=== PATIENT | female | born 1960 | race Caucasian/White ===

== ENCOUNTER 2023-11-10 17:45 | Inpatient (IN) ==
--- NOTE | 2023-11-10 18:05 | Emergency Department Note ---
Impression & Plan Pyelonephritis, Elevated troponin I level ED Provider Note NAME: DARYL FLORES AGE: 63 SEX: F : 1960 ARRIVES VIA: Ambulance INFORMANT: Patient, ED PROVIDER(S): Oleg Rdz DO CHIEF COMPLAINT: Fever HPI: The patient is a 63-year-old female who presented to the emergency department for a fever. The patient states that she started having symptoms yesterday. She is currently being treated for dental infection. She is on amoxicillin. Patient took ibuprofen prior to arrival. She has had a slight cough and she has had a exposure to COVID-19. The patient denies having any dysuria or frequency. She denies having any back pain. She did note some nausea. She denies having any redness or swelling of the legs ROS: See above HPI for pertinent positives & negatives. A total of 10 systems reviewed and were otherwise negative. PAST MEDICAL HISTORY: See Below PAST SURGICAL HISTORY: See Below FAMILY HISTORY: See Below SOCIAL HISTORY: See Below HOME MEDICATIONS: See Below ALLERGIES: See Below VITALS: See Below PHYSICAL EXAMINATION: GENERAL: Patient is awake alert in no acute distress patient is resting comfortably and showing no signs of anxiety EYES: The conjunctivae are clear. The pupils are round and reactive. EARS, NOSE, MOUTH AND THROAT: The nose is without any evidence of any deformity. There was small swelling on the left upper gumline. There is no trismus or facial swelling. NECK: The neck is nontender and supple. RESPIRATORY: Normal respiratory effort is noted there is no evidence of wheezing rhonchi or rales CARDIOVASCULAR: Regular rate and rhythm noted there no murmurs rubs or gallops normal S1 normal S2. GASTROINTESTINAL: The abdomen is soft. Abdomen is nontender. MUSCULOSKELETAL/EXTREMITIES: There is no evidence of gross deformity full range of motion is noted in the hips and shoulders. SKIN: There is no obvious evidence of any rash. There are no petechiae, pallor or cyanosis noted. NEUROLOGIC: Patient is awake alert and oriented x3 MEDICAL DECISION MAKING: The patient is a 63-year-old female who presented to the emergency department for an evaluation of fever and not feeling well. She did have nausea. Physical exam was not consistent with an acute surgical abdomen. The patient initially had reassuring vital signs but her blood pressure started to drop. She was treated with IV fluids in the emergency department. She was also treated with IV antibiotics for presumed urinary tract infection noted on urinalysis. I discussed patient's laboratory and radiographic studies with her. She was found to have an elevated white blood cell count as well as an elevation of procalcitonin. Given her vital signs as well as her lack of primary care follow-up I do feel the patient would be a better candidate for inpatient management at this time. For this reason I discussed her condition with the on- call [facility] hospitalist. Triage Nursing notes reviewed. Prior medical records reviewed Vital Signs: reviewed and remarkable for intermittent hypotension. Differential diagnosis: Viral syndrome, otitis, pharyngitis, pneumonia, influenza, meningitis, urinary tract infection, sepsis, bacteremia, as well as other pathologies. ER treatment provided: See below Diagnostics interpreted by me: ECG: EKG was obtained in the emergency department. My interpretation is normal sinus rhythm at 96 bpm. There is no ectopy. There is no acute ST segment abnormalities noted. No previous tracing was available. Cardiac Monitoring: An order was placed for continuous cardiac monitoring. The monitor shows a rate of 95 bpm with sinus rhythm. Laboratory studies: As stated above and show below. Imaging studies: See below. Radiographic imaging was reviewed by myself Consultation(s): I discussed this case with Dr. Ceja who is on-call for the [facility]. Past Med/Surg History Problem List (Updated 11/10/23 @ 20:01 by Oleg Rdz DO) Elevated troponin I level (Acute) Pyelonephritis (Acute) UTI (urinary tract infection) Social History Smoking Status: Never smoker Preferred Language: Fijian Feels Safe at Home: Yes Results & Data (ED) Vital Signs Vital Signs - 24 hr 11/10/23 17:33 11/10/23 18:03 11/10/23 19:57 Temperature 36.7 C Temperature Source Oral Pulse Rate 97 H 95 H Respiratory Rate 18 18 Respiratory Depth Normal Blood Pressure 103/59 L Blood Pressure [Left Arm] 106/64 Blood Pressure Mean 73 Blood Pressure Mean [Left Arm] 78 Pulse Oximetry 94 94 Oxygen Delivery Method Room Air Sepsis Recent Fever Within 48 Hours Yes Sepsis New/Unexplained Change in Mental Status No Sepsis Action Taken by Nursing No Action Required Home Medications Current Medication List: was personally reviewed by me Laboratory Data Attestation: I reviewed the patient's lab results. 11/10/23 18:09 11/10/23 18:09 Lab Results 11/10/23 11/10/23 11/10/23 Range/Units 18:07 18:09 Unknown WBC 13.44 H (4.8-10.8) K/ul RBC 3.79 L (4.20-5.40) M/uL Hgb 11.5 L (12.0-16.0) g/dl Hct 34.1 L (37.0-47.0) % MCV 90.0 (80.0-100.0) fL MCH 30.3 (25.0-34.0) pg MCHC 33.7 (32.0-36.0) g/dL RDW Std Deviation 42.6 (36.4-46.3) fL RDW Coeff of July 12.9 (11.5-14.5) % Plt Count 273 (130-400) K/uL MPV 9.2 L (9.4-12.4) fL Immature Gran % (Auto) 0.6 % Neut % (Auto) 87.3 % Lymph % (Auto) 4.7 % [place] % (Auto) 7.2 % Eos % (Auto) 0.0 % Baso % (Auto) 0.2 % Neut # (Auto) 11.73 H (1.40-6.50) K/uL Lymph # (Auto) 0.63 L (1.20-3.40) K/uL [place] # (Auto) 0.97 H (0.11-0.59) K/uL Eos # (Auto) 0.00 (0.00-0.50) K/uL Baso # (Auto) 0.03 (0.00-0.20) K/uL Immature Gran # (Auto) 0.08 (0.01-0.20) K/uL Sodium 136 (136-145) mmol/L Potassium 3.2 L (3.5-5.1) mmol/L Chloride 105 (98-107) mmol/L Carbon Dioxide 21 (21-32) mmol/L Anion Gap 10 (3-11) BUN 11 (6-23) mg/dl Creatinine 0.80 (0.6-1.2) mg/dl Est Cr Clr Drug Dosing 61.1 ml/min Est GFR ( Amer) 92.2 ml/min Est GFR (Non-Af Amer) 79.6 ml/min BUN/Creatinine Ratio 13.8 (10-20) Glucose 117 H (70-99(Fasting)) mg/dl Calcium 8.7 (8.6-10.3) mg/dl Total Bilirubin 0.9 (0.2-1.0) mg/dl AST 26 (13-39) U/L ALT 15 (7-52) U/L Alkaline Phosphatase 86 (34-104) U/L Troponin I High Sens 15.6 H (0-14) pg/ml Total Protein 6.5 (6.0-8.3) gm/dl Albumin 3.7 (3.4-5.0) gm/dl Globulin 2.8 (2.5-4.0) gm/dl Albumin/Globulin Ratio 1.3 (0.9-2) Lipase 13 (11-82) U/L Procalcitonin 5.03 H (0-0.5) ng/ml Urine Color Yellow Urine Appearance Cloudy A (Clear) Urine pH 6.0 (4.5-7.5) Ur Specific [place] 1.013 (1.000-1.030) Urine Protein 1+ H (Negative) Urine Glucose (UA) Negative (Negative) Urine Ketones 1+ H (Negative) Urine Blood 3+ H (Negative) Urine Nitrite Positive A (Negative) Urine Bilirubin Negative (Negative) Urine Urobilinogen Negative (Negative) Ur Leukocyte Esterase 3+ H (Negative) Urine WBC (Auto) >50 H (0-5) /hpf Urine RBC (Auto) >20 H (0-2) /hpf U Hyaline Cast (Auto) 0-2 (0-2) /lpf U Epithel Cells (Auto) 0-2 (0-2) /hpf Urine Bacteria (Auto) 4+ H (None Seen) SARS-CoV-2 (PCR) NEGATIVE (Negative) Influenza Type A (PCR) Negative (Neg) Influenza Type B (PCR) Negative (Neg) RSV (RT-PCR) Negative (Neg) Administered Medications Discontinued Medications Sodium Chloride (Nss) 1,000 mls @ 999 mls/hr IV .Q1H1M STA Stop: 11/10/23 19:00 Last Infusion: 11/10/23 19:50 Dose: Infused Documented By: Admin: 11/10/23 18:14 Dose: 999 mls/hr Documented By: PABLO Sodium Chloride (Nss) 1,000 mls @ 999 mls/hr IV .Q1H1M ONE Stop: 11/10/23 20:10 Last Admin: 11/10/23 19:16 Dose: 999 mls/hr Documented By: JANAK Ondansetron HCl (Ondansetron Inj 2 Mg/Ml 2 Ml Vial) 4 mg IV NOW STA Stop: 11/10/23 18:01 Last Admin: 11/10/23 18:14 Dose: 4 mg Documented By: PABLO Imaging Data Attestation: I personally reviewed and interpreted this imaging study as follows: My Impression: 1 view chest x-ray was obtained in the emergency department. My interpretation is no free air or definite infiltrate, final report below. Radiologist's Impression: Chest X-Ray 11/10/23 18:00 SINGLE VIEW CHEST CLINICAL HISTORY: Fever. FINDINGS: An AP, portable, upright chest radiograph is obtained. No prior studies are available for comparison at the time of dictation. The cardiomediastinal silhouette is unremarkable. Airspace opacities are seen at the left lung base. No large pleural effusion or pneumothorax is seen. The skeletal structures are osteopenic. The bony thorax is grossly intact. There is thoracolumbar scoliosis with a spinal lona in place. The lona appears fractured. IMPRESSION: 1. There are left basilar opacities. This could represent atelectasis versus a mild pneumonitis. Clinical correlation will be required and radiographic follow- up to resolution is recommended. 2. A spinal lona is in place and appears fractured. ACT 112: Negative or not required by law. Electronically signed by: Emiliano Herndon M.D. 11/10/2023 8:06 PM Discharge Plan Visit Data Chief Complaint: Illness Stated Complaint: ILLNESS ED Provider: Oleg Rdz Discharge Problem: Pyelonephritis, Elevated troponin I level Patient Disposition: Being Evaluated by Hospitalist Forms Stand Alone Forms: My [facility] Referrals Referrals: PCP,NO [Physician] -
[2023-11-10] MEDS: ONDANSETRON INJ 2 MG/ML 2 ML VIAL IV STA (18:14)
[2023-11-10] MEDS: SODIUM CHLORIDE 0.9% 1,000 ML IV STA (18:14)
[2023-11-10 18:23] LABS: Basophils # (auto) 0.03 K/uL (0.00-0.20); Basophils % (auto) 0.2 %; Hematocrit (blood only) 34.1 % (37.0-47.0); Hemoglobin 11.5 g/dl (12.0-16.0); Immature Granulocytes # (auto) 0.08 K/uL (0.01-0.20); Immature Granulocytes % (auto) 0.6 %; Lymphocytes # (auto) 0.63 K/uL (1.20-3.40); Lymphocytes % (auto) 4.7 %; Mean Corpuscular Hemoglobin 30.3 pg (25.0-34.0); Mean Corpuscular Hgb Conc 33.7 g/dL (32.0-36.0); Mean Platelet Volume 9.2 fL (9.4-12.4); Monocytes # (auto) 0.97 K/uL (0.11-0.59); Monocytes % (auto) 7.2 %; Neutrophils # (auto) 11.73 K/uL (1.40-6.50); Neutrophils % (auto) 87.3 %; Platelet Count 273 K/uL (130-400); RDW Coefficient of Variation 12.9 % (11.5-14.5); RDW Standard Deviation 42.6 fL (36.4-46.3); Red Blood Count 3.79 M/uL (4.20-5.40); White Blood Count 13.44 K/ul (4.8-10.8)
[2023-11-10 18:42] LABS: Albumin Globulin Ratio 1.3 (0.9-2); Albumin Level 3.7 gm/dl (3.4-5.0); BUN Creatinine Ratio 13.8 (10-20); Bilirubin,Total 0.9 mg/dl (0.2-1.0); Calcium 8.7 mg/dl (8.6-10.3); Creatinine Clr Calc Pharmacy 61.1 ml/min; Est GFR (African American) 92.2 ml/min; Est GFR (Non-African American) 79.6 ml/min; Globulin 2.8 gm/dl (2.5-4.0); Potassium 3.2 mmol/L (3.5-5.1); Total Protein 6.5 gm/dl (6.0-8.3)
[2023-11-10 18:49] LABS: Troponin I High Sensitivity 15.6 pg/ml (0-14)
[2023-11-10 18:55] LABS: Influenza A virus by PCR Negative (Neg); Influenza B virus by PCR Negative (Neg); RSV by PCR Negative (Neg); SARS CoV2 RNA(COVID-19) Ceph NEGATIVE (Negative)
[2023-11-10 19:13] LABS: Appearance Urine Cloudy (Clear); Bacteria Urine Automated 4+ (None Seen); Bilirubin Urine Negative (Negative); Blood Urine 3+ (Negative); Cast Urine Automated 0-2 /lpf (0-2); Color Urine Yellow; Epithelial Cell Urine Auto 0-2 /hpf (0-2); Glucose Urine UA Negative (Negative); Ketones Urine 1+ (Negative); Leukocyte Esterase Urine 3+ (Negative); Nitrite Urine Positive (Negative); Protein Urine 1+ (Negative); RBC Urine Automated >20 /hpf (0-2); Specific Gravity Urine 1.013 (1.000-1.030); Urobilinogen Urine Negative (Negative); WBC Urine Automated >50 /hpf (0-5)
[2023-11-10] MEDS: SODIUM CHLORIDE 0.9% 1,000 ML IV ONE (19:16)
--- NOTE | 2023-11-10 19:41 | History & Physical Report ---
Date of Service November 10, 2023 Assessment & Plan (1) UTI (urinary tract infection): Plan: Fever, chills, and rigors that developed the evening of 11/08 Patient endorses dark/malodorous urine this week Leukocytosis at 13.44 with a neutrophil predominance CRP ordered, pending Zosyn 4.5 g IV q8h Acetaminophen as needed for fever/pain Follow Blood/UCx A.m. CBC, BMP, mag (2) Sepsis: Plan: Urinary source; tachycardia, and reported fever at home; mildly hypotensive in the ED Elevated procalcitonin at 5.03 Lactate ordered, pending IVF bolus of 2000mL NSS in the ED; 30mL/kg Continue gentle fluid rehydration with LR at 80mL/hr (3) Hyponatremia: Plan: Mild; K 3.2 on arrival Potassium chloride 20mEq p.o. Recheck am K Plan Disposition: Admit to Medr telemetry Full code Regular diet VTE PPx: Lovenox 40 mg SQ q24h History of Present Illness Chief Complaint: Illness, fever, rigors Primary Care Provider: NO PCP Iliana is a 63-year-old female with PMH of scoliosis (lona and back), depression, and headaches. She presented via EMS for fever, chills, and muscle aches that developed around 1300 on 11/08. Patient was recently traveling from [place], but started to feel bad on the right back. She currently lives in [place]. Patient did take her temperature last evening and it was around 102.7 F; fever broke shortly after taking ibuprofen, but she was still shaking uncontrollably that night. She does have a history of UTIs, and notes that her urine has been dark and malodorous the past few days. No recent change in diet. No sick contacts. No tick bites to her knowledge, but she reports she might have contact dermatitis on her back. She does have a history of scoliosis, and has hardware in her back. When asked about lower back pain, her friend at bedside reports that she has been complaining of LBP x 2 days; however, patient denies any change from her chronic/regular back pain. She has not been taking anything additional for the pain, but does use a heating pad and [place] as needed. Patient was recently started on amoxicillin by her dentist for an abscess in her right gum; she was prescribed this TID, but has been taking it BID. She denies PCN allergy. She also takes mirtazapine 30 mg at bedtime 2-3 times per week as needed for depression. She takes Fioricet as needed for headaches, and zolpidem ER 12.5 mg nightly for sleep. Patient denies smoking, tobacco use, and recent alcohol use. Patient is currently between jobs at, and does express some concerns regarding her health insurance (recommended patient call number on the back of her insurance card to verify; and agreed to discuss with case management). Patient is mildly hypotensive at 103/59 at time of admission; SpO2 94% on RA; vitals otherwise stable. ED course: NSS 1000 mL IV x 2 Zofran 4 mg IV Cefepime 2000 g IV ROS: Patient endorses fever, chills, night-sweats, dizziness/lightheadedness with movements, headache, dry cough, chest palpitations, nausea, dry heaves, dark malodorous urine, increased urinary frequency/urgency, and lower back pain. Patient denies changes in vision, chest pain, SOB, pleuritic CP, abdominal pain, vomiting, diarrhea, blood in urine/stool, burning with urination, or dysuria. Allergies Allergy/AdvReac Type Severity Reaction Status Date / Time thimerosal Allergy Intermediate EYE Verified 11/10/23 20:42 SWELLING, REDDENED, IRRITATED. monosodium glutamate AdvReac Severe SEVERE MATTSON, Verified 11/10/23 21:05 PROJECTILE VOMITING, SEVERE DIARRHEA MYCIN ANTIBIOTICS AdvReac Intermediate VOMITING, Uncoded 11/10/23 20:42 PASSED OUT, SHAKING Home Medications Medication Instructions Recorded Confirmed Type amoxicillin 500 mg tablet 500 mg PO TID 11/10/23 11/10/23 History bynhysdfqo-usulnsskohfde-cwatdzfa 1 tab PO DAILY PRN q6h 11/10/23 11/10/23 History 50 mg-325 mg-40 mg tablet mirtazapine 15 mg tablet 30 mg PO HS 11/10/23 11/10/23 History zolpidem 12.5 mg tablet,extended 12.5 mg PO HS 11/10/23 11/10/23 History release,multiphase Past Med/Surg History Problem List (Updated 11/10/23 @ 20:58 by Franklin Hartmann PA-C) Sepsis Hyponatremia Elevated troponin I level (Acute) Pyelonephritis (Acute) UTI (urinary tract infection) Social History Smoking Status: Never smoker Hx Alcohol Use: No Hx Substance Use: No Preferred Language: Mongolian Communication Ability: Effective Internet Researcher Required: No Beliefs That Will Affect Care: None Current Living Situation: Significant Other Current Living Situation Comment: lives with fialbertoe Other Information That Helps Us Care for You: No Feels Safe at Home: Yes Safety Concerns: Feels Safe At This Time Assistive Devices: Contacts, Glasses and Hospital Bed Review of Systems Review of Systems: See HPI above Physical Exam Physical Exam: General: no acute distress; non-toxic appearing; SpO2 94% on RA HEENT: normocephalic, atraumatic; no scleral icterus; PERRLA; dry mucus membrane; vision and hearing grossly intact Neck: supple; trachea midline Skin: warm, dry without signs of tenting; no cyanosis; no rashes, bruising, lesions, or erythema noted CV: chest wall NTP; RRR; S1/S2 normal; no murmurs/rubs/gallops; bounding pulses intact and symmetric at radial, DP, and PT Lungs: no acute respiratory distress; symmetrical chest wall expansion; clear breath sounds across all lung oliver w/o adventitious sounds; no wheezing ABD: Soft, NTP; BS present; no rebound/guarding; no distention Back: Scoliosis; negative CVA tenderness MSK: no tics or fasciculations; no edema noted in the LEs b/l, nonerythematous Neuro: A&Ox3; normal mood and affect; fluent speech; no focal deficits; sensation grossly intact in the LEs b/l Results & Data Results & Data Vital Signs (Past 12 Hours) Vital Signs Temp Pulse Resp BP Pulse Ox O2 Del Method 11/10/23 18:03 95 H 11/10/23 17:33 36.7 C 97 H 18 103/59 L 94 Room Air Laboratory Results Abnormal lab results 11/10/23 11/10/23 Range/Units 18:09 Unknown WBC 13.44 H (4.8-10.8) K/ul RBC 3.79 L (4.20-5.40) M/uL Hgb 11.5 L (12.0-16.0) g/dl Hct 34.1 L (37.0-47.0) % MPV 9.2 L (9.4-12.4) fL Neut # (Auto) 11.73 H (1.40-6.50) K/uL Lymph # (Auto) 0.63 L (1.20-3.40) K/uL [place] # (Auto) 0.97 H (0.11-0.59) K/uL Potassium 3.2 L (3.5-5.1) mmol/L Glucose 117 H (70-99(Fasting)) mg/dl Troponin I High Sens 15.6 H (0-14) pg/ml Procalcitonin 5.03 H (0-0.5) ng/ml Urine Appearance Cloudy A (Clear) Urine Protein 1+ H (Negative) Urine Ketones 1+ H (Negative) Urine Blood 3+ H (Negative) Urine Nitrite Positive A (Negative) Ur Leukocyte Esterase 3+ H (Negative) Urine WBC (Auto) >50 H (0-5) /hpf Urine RBC (Auto) >20 H (0-2) /hpf Urine Bacteria (Auto) 4+ H (None Seen) ECG Additional Comments: ECG ordered, pending Code Status & VTE Plan Code Status Full code VTE Prophylaxis Plan VTE Prophylaxis will be ordered: Yes Supervising Physician Co-Signing Physician Notes Patient seen and examined, chart reviewed, case discussed with NAYA hernández I agree with the assessment and plan as above. In brief, patient with sepsis, likely secondary to urinary source. She is afebrile with borderline BP initially. Has leukocytosis with WBC=13.44, elevated procalcitonin at 5.03 and UA suggestive of infection. On exam patient with generalized weakness - requires two person assist to the restroom Dysuria Dry MMM Abdomen soft, NT/ND, no CVA tenderness Ext - warm, well perfused Labs and images reviewed Assessment/Plan Patient initially admitted to medical. She had borderline low BPs in the ER which improved with manipulating her BP cuff. However, upon arrival to the floor her BP remainded low. She received 2.5L crystalloid thus far Lactate=2.1 --> 2.1 on one hour repeat Troponin did normalize on repeat -Patient transferred to PCU -Additional 500mL bolus of LR administered - total of 3L crystalloid bolus. She is on LR at 80mL/hr -Check random cortisol -Repeat lactate with AM labs to document clearance -CT of the abdomen obtained to assess for pyelonephritis, possible renal stone - awaiting formal read. Per my interpretation - patient with difficult positioning due to scoliosis, hardware in back causing some artifact. She does appear to have renal stones on right, possible PNA -Will check MRSA nares and add Vancomycin if needed -Continue Zosyn - will cover urinary pathogens as well as her dental abscess for which she was being treated prior to arrival -Remainder as above PG Care Time/CCT Total # of Minutes Spent Total Time Spent with Patient: Total time spent is greater than 50% in coordination of care (as documented) at patient's floor/unit and/or counseling patient: [place] [address] INT INP/OBS CARE 2/55MIN Patient Type New Medical Decision Making Moderate Complexity Diagnoses UTI (urinary tract infection) N39.0 Sepsis A41.9 Hyponatremia E87.1
--- NOTE | 2023-11-10 20:08 | XRay Report ---
SINGLE VIEW CHEST CLINICAL HISTORY: Fever. FINDINGS: An AP, portable, upright chest radiograph is obtained. No prior studies are available for c omparison at the time of dictation. The cardiomediastinal silhouette is unremarkable. Airspace opacit ies are seen at the left lung base. No large pleural effusion or pneumothorax is seen. The skeletal s tructures are osteopenic. The bony thorax is grossly intact. There is thoracolumbar scoliosis with a spinal lona in place. The lona appears fractured. IMPRESSION: 1. There are left basilar opacities. This could represent atelectasis versus a mild pneumonitis. Clin ical correlation will be required and radiographic follow-up to resolution is recommended. 2. A spinal lona is in place and appears fractured. ACT 112: Negative or not required by law. Electronically signed by: Emiliano Herndon M.D. 11/10/2023 8:06 PM
[2023-11-10] MEDS: POTASSIUM CHLORIDE CRTAB 20 MEQ TABCR PO STA (20:21)
[2023-11-10] MEDS: CEFEPIME 2,000 MG/20 ML VIAL IV STA (20:22)
[2023-11-10] MEDS: PIPERACILLIN/TAZOBACTAM 4.5 GM/100 ML BAG IV STA (21:29)
[2023-11-10] MEDS: LACTATED RINGER'S 500 ML IV ONE ×2 (22:22→23:23)
[2023-11-10] MEDS: LACTATED RINGER'S 1,000 ML IV SCH (22:58)
[2023-11-11] MEDS: [UNRECOGNIZED DRUG - REMARK] PO SCH (00:26)
[2023-11-11] MEDS: MIRTAZAPINE TAB 15 MG TAB PO SCH (00:27)
[2023-11-11] MEDS: ENOXAPARIN INJ 40 MG/0.4 ML SYR SQ SCH (00:29)
[2023-11-11] MEDS: ACETAMINOPHEN 325 MG TAB PO PRN (02:22)
--- NOTE | 2023-11-11 02:50 | CT Scan Report ---
Exam(s): CT ABDOMEN + PELVIS Without Contrast EXAM: CT Abdomen and Pelvis Without Intravenous Contrast CLINICAL HISTORY: Reason for exam: ?pyelonephritis ?renal stones. TECHNIQUE: Axial computed tomography images of the abdomen and pelvis without intravenous contrast. CTDI is 12.13 mGy and DLP is 510.13 mGy-cm. Automated exposure control was utilized for the study. A dose lowering technique was utilized adhering to the principles of ALARA. COMPARISON: No relevant prior studies available. FINDINGS: Lung bases: Dependent airspace consolidations. ABDOMEN: Liver: Unremarkable. Gallbladder and bile ducts: Unremarkable. No calcified stones. No ductal dilation. Pancreas: Unremarkable. No ductal dilation. Spleen: Unremarkable. No splenomegaly. Adrenals: Unremarkable. No mass. Kidneys and ureters: Bilateral nonobstructing renal stones, measuring up to 3 mm in the RIGHT kidney. No obstructive uropathy. Stomach and bowel: Mild wall thickening of small bowel, correlate for mild enteritis. No obstruction. PELVIS: Appendix: No findings to suggest acute appendicitis. Bladder: Unremarkable. No stones. Reproductive: Unremarkable as visualized. ABDOMEN and PELVIS: Intraperitoneal space: Unremarkable. No free air. No significant fluid collection. Bones/joints: Degenerative changes of the spine. No acute fracture. No dislocation. Soft tissues: Unremarkable. Vasculature: Atherosclerotic changes of the aorta. No abdominal aortic aneurysm. Lymph nodes: Unremarkable. No enlarged lymph nodes. Other findings: Right-sided [place] lona. IMPRESSION: 1. Dependent airspace consolidations. 2. Mild wall thickening of small bowel, correlate for mild enteritis. 3. Bilateral nonobstructing renal stones, measuring up to 3 mm in the RIGHT kidney. If there is concern for pallor nephritis, recommend repeat exam with intravenous contrast. Electronically signed by: Basilio Holm MD 11/11/23 02:49 AM
[2023-11-11 03:01] LABS: Magnesium 1.7 mg/dl (1.7-2.4)
[2023-11-11 03:07] LABS: C Reactive Protein 12.1 mg/dl (0-0.5)
[2023-11-11] MEDS: PIPERACILLIN/TAZOBACTAM 4.5 GM in DEXTROSE 5% MINI-B 100 ML IV SCH (03:30)
[2023-11-11] MEDS: BUTALBITAL/ACETAMIN/CAFFEINE TAB PO PRN (05:32)
[2023-11-11 05:54] LABS: Basophils # (auto) 0.03 K/uL (0.00-0.20); Basophils % (auto) 0.3 %; Eosinophils # (auto) 0.01 K/uL (0.00-0.50); Eosinophils % (auto) 0.1 %; Hematocrit (blood only) 31.9 % (37.0-47.0); Hemoglobin 10.4 g/dl (12.0-16.0); Immature Granulocytes # (auto) 0.05 K/uL (0.01-0.20); Immature Granulocytes % (auto) 0.5 %; Lymphocytes # (auto) 0.65 K/uL (1.20-3.40); Lymphocytes % (auto) 6.3 %; Mean Corpuscular Hemoglobin 30.1 pg (25.0-34.0); Mean Corpuscular Hgb Conc 32.6 g/dL (32.0-36.0); Mean Corpuscular Volume 92.5 fL (80.0-100.0); Mean Platelet Volume 9.3 fL (9.4-12.4); Monocytes # (auto) 0.41 K/uL (0.11-0.59); Neutrophils # (auto) 9.18 K/uL (1.40-6.50); Neutrophils % (auto) 88.8 %; Platelet Count 260 K/uL (130-400); RDW Coefficient of Variation 13.3 % (11.5-14.5); RDW Standard Deviation 45.2 fL (36.4-46.3); Red Blood Count 3.45 M/uL (4.20-5.40); White Blood Count 10.33 K/ul (4.8-10.8)
[2023-11-11 06:12] LABS: BUN Creatinine Ratio 9.5 (10-20); Calcium 8.3 mg/dl (8.6-10.3); Est GFR (African American) 101.3 ml/min; Est GFR (Non-African American) 87.4 ml/min; Magnesium 1.7 mg/dl (1.7-2.4); Potassium 3.3 mmol/L (3.5-5.1)
[2023-11-11] MEDS: POTASSIUM CHLORIDE CRTAB 20 MEQ TABCR PO SCH (08:48)
--- NOTE | 2023-11-11 10:58 | Electrocardiogram Report ---
Test Reason : Blood Pressure : / mmHG Vent. Rate : 096 BPM Atrial Rate : 096 BPM P-R Int : 146 ms QRS Dur : 090 ms QT Int : 370 ms P-R-T Axes : 038 035 057 degrees QTc Int : 467 ms Normal sinus rhythm Normal ECG No previous ECGs available Confirmed by Srinivas Jiang ([id number]) on 11/11/2023 10:58:30 AM Referred By: REFERRED SELF Confirmed By:Jose Luis Jiang
[2023-11-11 11:51] LABS: A calco-baum cmplx NotReported Not Detected (NotDetected); Bact fragilis Not Reported Not Detected (NotDetected); Blood Culture Id Panel See PCR Comment (NotDetected); C auris Not Reported Not Detected (NotDetected); CTX-M Resistant Gene DETECTED (NotDetected); Calbicans Not Reported Not Detected (NotDetected); Candida glabrata Not Reported Not Detected (NotDetected); Candida krusei Not Reported Not Detected (NotDetected); Cneoformans/gatti Not Reported Not Detected (NotDetected); Cparapsilosis Not Reported Not Detected (NotDetected); E cloacae compx Not Reported Not Detected (NotDetected); Efaecalis Not Reported Not Detected (NotDetected); Efaecium Not Reported Not Detected (NotDetected); Enterobacterales DETECTED (NotDetected); Enterobacterales Not Reported DETECTED (NotDetected); Escherichia coli Not Reported DETECTED (NotDetected); H influenzae Not Reported Not Detected (NotDetected); IMP Resistant Gene Not Detected (NotDetected); K aerogenes Not Reported Not Detected (NotDetected); KPC Resistant Gene Not Detected (NotDetected); Koxytoca Not Reported Not Detected (NotDetected); Kpneumoniae grp Not Reported Not Detected (NotDetected); Lmonocyt Not Reported Not Detected (NotDetected); N meningitidis Not Reported Not Detected (NotDetected); NDM Resistant Gene Not Detected (NotDetected); OXA 48 Like Resistant Gene Not Detected (NotDetected); P aeruginosa Not Reported Not Detected (NotDetected); Proteus spp Not Reported Not Detected (NotDetected); Salmonella spp Not Reported Not Detected (NotDetected); Smarcescens Not Reported Not Detected (NotDetected); Staph lugdunensis Not Reported Not Detected (NotDetected); Staph spp. Not Reported Not Detected (NotDetected); Staphaureus Not Reported Not Detected (NotDetected); Staphepi Not Reported Not Detected (NotDetected); Stenmaltophilia Not Reported Not Detected (NotDetected); Strep agal(GrpB) Not Reported Not Detected (NotDetected); Strep pneum Not Reported Not Detected (NotDetected); Strep pyog (GrpA) Not Reported Not Detected (NotDetected); Strep spp Not Reported Not Detected (NotDetected); VIM Resistant Gene Not Detected (NotDetected); mcr-1 Colistin Resistant Gene Not Detected (NotDetected)
[2023-11-11] MEDS: ONDANSETRON INJ 2 MG/ML 2 ML VIAL IV PRN (12:16)
[2023-11-11] MEDS: IBUPROFEN 600 MG TAB PO STA (12:26)
[2023-11-11] MEDS: IBUPROFEN 600 MG TAB PO ONE (12:27)
--- NOTE | 2023-11-11 14:15 | Hospitalist Progress Note ---
Date of Service November 11, 2023 Assessment & Plan (1) UTI (urinary tract infection): Plan: Patient endorses dark/malodorous urine this week along with fevers, chills, rigors that developed evening of 11/09/2023. Reviewed labs today 11/11/2023 that did reveal improved white count of 10.33 and improved neutrophils of 9.18. Worsened CRP 17.13 and Procalcitonin 10.60. BUN 7, creatinine 0.74 (WNL) Reviewed CTAP without contrast from 11/09/2022 that did reveal bilateral nonobstructing renal stones measuring up to 3 mm in the right kidney. Radiologist did document that if there is concern for pyelonephritis to repeat with IV contrast. Since symptoms improving, will hold off on this for now. Prelim results of urine and blood both revealing gram-negative bacilli. PCR serology detected enterobacterales, E. coli, CTXM gene resistance. Patient switched from Zosyn to ertapenem Acetaminophen as needed for fever/pain We will plan to recheck a CBC, BMP, CRP, procalcitonin in the morning. -Discussed plan of care with patient and her fiance. (2) Sepsis: Plan: Urinary source. Patient has been tachycardic and hypotensive 11/11/23 Patient does report systolic readings between 80s to 90s at home and that this is normal for her Reviewed Lactate 11/11/2023: 2.2 Continue IV fluids with LR at 80 mL/h (3) Hypokalemia: Plan: Reviewed potassium 11/10/2023 3.2 with minimal improvement to 3.3 11/10. Patient was given 20 mEq of potassium 3 times daily 11/10 Will plan to repeat BMP in the morning to reassess and correct as needed. Plan Patient was given 600mg Ibuprofen for management of headache. She can continue to use Tylenol as needed. Patient also endorsed sleeping issues while hospitalized. She routinely takes Ambien 12.5 mg nightly which she can continue on. We will plan to add hydroxyzine 25mg tonight. Disposition: Admit to [facility] telemetry Full code Regular diet VTE PPx: Lovenox 40 mg SQ q24h Admission and Anticipated Discharge Date Admission Date: November 10, 2023 Subjective Patient seen and examined this morning at bedside. Patient's fianc was also present. Patient reports that she was feeling better today. She reports that she has a history of back pain due to her scoliosis and it has not been worse recently. She wants to go home as she starts a new job tomorrow and has been considering signing out AMA. She also requested her inflammatory markers be re- drawn to see if there was any improvement. She has been urinating and defecating well. She denies chest pain or shortness of breath. She denies abdominal pain. Patient also tells me that she has a history of having low blood pressure. She states that at home she regularly has her systolic pressures in the 80s to 90s. She states that she did not sleep well last night. She states that she typically takes Ambien 12.5 mg nightly at home for management of her insomnia. She is asking for something else this evening to help her sleep. Patient also states that she has a headache due to lack of sleep. She was given Tylenol and Fioricet with no relief and was then given a one time dose of ibuprofen. Physical Exam 2 Constitutional: WD/WN, vitals as above Eyes: PERRL, conjunctivae normal, anicteric sclerae ENMT: external ear and nose normal, oropharynx normal Respiratory: normal respiratory effort, lungs clear to auscultation Gastrointestinal (Abdomen): normal bowel sounds, soft, nontender, no hepatosplenomegaly (Negative CVA tenderness) Musculoskeletal: no cyanosis or clubbing, extremities motor strength 5/5 Skin: no rashes, warm and dry Neurologic: PERRL, EOMI, accommodation nl, no face palsy, no dysarthria Psychiatric: A+Ox3, euthymic affect Results & Data Results & Data Vital Signs (Past 12 Hours) Vital Signs Temp Pulse Pulse Resp BP BP Pulse Ox 11/11/23 11:43 36.8 C 86 18 101/52 L 97 11/11/23 07:53 37.1 C 98 H 18 92/55 L 96 11/11/23 05:56 90 11/11/23 03:36 37 C 94 H 16 98/60 L 95 O2 Del Method 11/11/23 11:43 Room Air 11/11/23 07:53 Room Air 11/11/23 05:56 11/11/23 03:36 Room Air Laboratory Results 11/11/23 05:21 11/11/23 05:21 Diagnostic Findings Chest X-Ray 11/10/23 18:00 SINGLE VIEW CHEST CLINICAL HISTORY: Fever. FINDINGS: An AP, portable, upright chest radiograph is obtained. No prior studies are available for comparison at the time of dictation. The cardiomediastinal silhouette is unremarkable. Airspace opacities are seen at the left lung base. No large pleural effusion or pneumothorax is seen. The skeletal structures are osteopenic. The bony thorax is grossly intact. There is thoracolumbar scoliosis with a spinal lona in place. The lona appears fractured. IMPRESSION: 1. There are left basilar opacities. This could represent atelectasis versus a mild pneumonitis. Clinical correlation will be required and radiographic follow- up to resolution is recommended. 2. A spinal lona is in place and appears fractured. ACT 112: Negative or not required by law. Electronically signed by: Emiliano Herndon M.D. 11/10/2023 8:06 PM Abdomen/Pelvis CT 11/10/23 23:18 Exam(s): CT ABDOMEN + PELVIS Without Contrast EXAM: CT Abdomen and Pelvis Without Intravenous Contrast CLINICAL HISTORY: Reason for exam: ?pyelonephritis ?renal stones. TECHNIQUE: Axial computed tomography images of the abdomen and pelvis without intravenous contrast. CTDI is 12.13 mGy and DLP is 510.13 mGy-cm. Automated exposure control was utilized for the study. A dose lowering technique was utilized adhering to the principles of ALARA. COMPARISON: No relevant prior studies available. FINDINGS: Lung bases: Dependent airspace consolidations. ABDOMEN: Liver: Unremarkable. Gallbladder and bile ducts: Unremarkable. No calcified stones. No ductal dilation. Pancreas: Unremarkable. No ductal dilation. Spleen: Unremarkable. No splenomegaly. Adrenals: Unremarkable. No mass. Kidneys and ureters: Bilateral nonobstructing renal stones, measuring up to 3 mm in the RIGHT kidney. No obstructive uropathy. Stomach and bowel: Mild wall thickening of small bowel, correlate for mild enteritis. No obstruction. PELVIS: Appendix: No findings to suggest acute appendicitis. Bladder: Unremarkable. No stones. Reproductive: Unremarkable as visualized. ABDOMEN and PELVIS: Intraperitoneal space: Unremarkable. No free air. No significant fluid collection. Bones/joints: Degenerative changes of the spine. No acute fracture. No dislocation. Soft tissues: Unremarkable. Vasculature: Atherosclerotic changes of the aorta. No abdominal aortic aneurysm. Lymph nodes: Unremarkable. No enlarged lymph nodes. Other findings: Right-sided [place] lona. IMPRESSION: 1. Dependent airspace consolidations. 2. Mild wall thickening of small bowel, correlate for mild enteritis. 3. Bilateral nonobstructing renal stones, measuring up to 3 mm in the RIGHT kidney. If there is concern for pallor nephritis, recommend repeat exam with intravenous contrast. Electronically signed by: Basilio Holm MD 11/11/23 02:49 AM PG Care Time/CCT Total # of Minutes Spent Total Time Spent with Patient: Total time spent is greater than 50% in coordination of care (as documented) at patient's floor/unit and/or counseling patient: Coding Level of Care Code 09060 SUB INP/OBS CARE 3/50MIN Diagnoses Urinary tract infection without hematuria, site unspecified N39.0 Hematuria presence: without hematuria Urinary tract infection type: site unspecified Sepsis without acute organ dysfunction, due to unspecified organism A41.9 Sepsis acute organ dysfunction status: without acute organ dysfunction Sepsis type: sepsis due to unspecified organism Hypokalemia E87.6 (1) UTI (urinary tract infection) Hematuria presence: without hematuria Urinary tract infection type: site unspecified Qualified Code(s): N39.0 - Urinary tract infection, site not specified (2) Sepsis Sepsis acute organ dysfunction status: without acute organ dysfunction Sepsis type: sepsis due to unspecified organism Qualified Code(s): A41.9 - Sepsis, unspecified organism
[2023-11-11] MEDS: ERTAPENEM SODIUM 1,000 MG in SYRINGE 0 ML IV SCH (16:02)
[2023-11-11] MEDS: PROCHLORPERAZINE 5 MG in SYRINGE 4 ML IV PRN (20:42)
[2023-11-11] MEDS: KETOROLAC TROMETHAMINE 15 MG/ML VIAL IV ONE (20:50)
[2023-11-11] MEDS ORDERED: MELATONIN 3 MG TAB PO PRN (21:44)
[2023-11-11] MEDS: hydrOXYzine HCl 25 MG TAB PO SCH (22:06)
[2023-11-11] MEDS: ZOLPIDEM PO STA (22:55)
[2023-11-12] MEDS: ACETAMINOPHEN 500 MG TAB PO ONE (06:19)
[2023-11-12] MEDS: BISMUTH SUBSALICYLATE 262 MG CHEW PO PRN (06:20)
[2023-11-12] MEDS: guaiFENesin 600 MG TABCR PO SCH (07:41)
[2023-11-12 08:09] LABS: Basophils # (auto) 0.03 K/uL (0.00-0.20); Basophils % (auto) 0.5 %; Eosinophils # (auto) 0.04 K/uL (0.00-0.50); Eosinophils % (auto) 0.7 %; Hematocrit (blood only) 30.1 % (37.0-47.0); Hemoglobin 9.9 g/dl (12.0-16.0); Immature Granulocytes # (auto) 0.02 K/uL (0.01-0.20); Immature Granulocytes % (auto) 0.3 %; Lymphocytes # (auto) 0.71 K/uL (1.20-3.40); Lymphocytes % (auto) 11.7 %; Mean Corpuscular Hemoglobin 29.9 pg (25.0-34.0); Mean Corpuscular Hgb Conc 32.9 g/dL (32.0-36.0); Mean Corpuscular Volume 90.9 fL (80.0-100.0); Mean Platelet Volume 9.8 fL (9.4-12.4); Monocytes # (auto) 0.51 K/uL (0.11-0.59); Monocytes % (auto) 8.4 %; Neutrophils # (auto) 4.77 K/uL (1.40-6.50); Neutrophils % (auto) 78.4 %; Platelet Count 281 K/uL (130-400); RDW Coefficient of Variation 13.6 % (11.5-14.5); RDW Standard Deviation 46.3 fL (36.4-46.3); Red Blood Count 3.31 M/uL (4.20-5.40); White Blood Count 6.08 K/ul (4.8-10.8)
[2023-11-12 08:21] LABS: BUN Creatinine Ratio 5.6 (10-20); C Reactive Protein 12.97 mg/dl (0-0.5); Calcium 8.5 mg/dl (8.6-10.3); Creatinine Clr Calc Pharmacy 68.8 ml/min; Est GFR (African American) 106.5 ml/min; Est GFR (Non-African American) 91.9 ml/min; Potassium 3.6 mmol/L (3.5-5.1)
--- NOTE | 2023-11-12 11:32 | Ultrasound Report ---
RENAL ULTRASOUND HISTORY: Acute bilateral flank pain evaluate for abscess COMPARISON: CT 11/11/2023 FINDINGS: Right kidney: 11.6 cm. Nonobstructing calculi of the right kidney measure up to approximately 4 to 5 mm. No perinephric fluid collections. No hydronephrosis. Normal corticomedullary differentiation and cortical thickness. Left kidney: 11.2 cm. Nonobstructing calculi measure up to approximately 4 mm. No hydronephrosis. Nor mal corticomedullary differentiation and cortical thickness. Bladder: No bladder wall thickening. The bilateral ureteral jets were identified. IMPRESSION: 1. Nonobstructing bilateral nephrolithiasis. No hydronephrosis. 2. Unremarkable urinary bladder. 3. No perinephric fluid collections. ACT 112: Negative or not required by law. Electronically signed by: Isaak Tolliver M.D. 11/12/2023 11:30 AM
--- NOTE | 2023-11-12 12:41 | Discharge Summary ---
Date of Service November 12, 2023 Admission HPI Per Admitting Provider Iliana is a 63-year-old female with PMH of scoliosis (lona and back), depression, and headaches. She presented via EMS for fever, chills, and muscle aches that developed around 1300 on 11/08. Patient was recently traveling from [place], but started to feel bad on the right back. She currently lives in [place]. Patient did take her temperature last evening and it was around 102.7 F; fever broke shortly after taking ibuprofen, but she was still shaking uncontrollably that night. She does have a history of UTIs, and notes that her urine has been dark and malodorous the past few days. No recent change in diet. No sick contacts. No tick bites to her knowledge, but she reports she might have contact dermatitis on her back. She does have a history of scoliosis, and has hardware in her back. When asked about lower back pain, her friend at bedside reports that she has been complaining of LBP x 2 days; however, patient denies any change from her chronic/regular back pain. She has not been taking anything additional for the pain, but does use a heating pad and Bengay as needed. Patient was recently started on amoxicillin by her dentist for an abscess in her right gum; she was prescribed this TID, but has been taking it BID. She denies PCN allergy. She also takes mirtazapine 30 mg at bedtime 2-3 times per week as needed for depression. She takes Fioricet as needed for headaches, and zolpidem ER 12.5 mg nightly for sleep. Patient denies smoking, tobacco use, and recent alcohol use. Patient is currently between jobs at, and does express some concerns regarding her health insurance (recommended patient call number on the back of her insurance card to verify; and agreed to discuss with case management). Patient is mildly hypotensive at 103/59 at time of admission; SpO2 94% on RA; vitals otherwise stable. ED course: NSS 1000 mL IV x 2 Zofran 4 mg IV Cefepime 2000 g IV ROS: Patient endorses fever, chills, night-sweats, dizziness/lightheadedness with movements, headache, dry cough, chest palpitations, nausea, dry heaves, dark malodorous urine, increased urinary frequency/urgency, and lower back pain. Patient denies changes in vision, chest pain, SOB, pleuritic CP, abdominal pain, vomiting, diarrhea, blood in urine/stool, burning with urination, or dysuria. Principal Diagnosis UTI, Sepsis Discharge Exam Constitutional WD/WN, vitals as above Eyes PERRL, conjunctivae normal, anicteric sclerae ENMT external ear and nose normal, oropharynx normal Respiratory normal respiratory effort, lungs clear to auscultation Gastrointestinal (Abdomen) normal bowel sounds, soft, nontender, no hepatosplenomegaly (Negative CVA tenderness) Musculoskeletal no cyanosis or clubbing, extremities motor strength 5/5 Skin no rashes, warm and dry Neurologic PERRL, EOMI, accommodation nl, no face palsy, no dysarthria Psychiatric A+Ox3, euthymic affect Discharge Data Allergies Allergy/AdvReac Type Severity Reaction Status Date / Time thimerosal Allergy Intermediate EYE Verified 11/10/23 20:42 SWELLING, REDDENED, IRRITATED. monosodium glutamate AdvReac Severe SEVERE MATTSON, Verified 11/10/23 21:05 PROJECTILE VOMITING, SEVERE DIARRHEA MYCIN ANTIBIOTICS AdvReac Intermediate VOMITING, Uncoded 11/10/23 20:42 PASSED OUT, SHAKING Consultations 11/10/23 19:43 ED Decision to Admit Stat Ordered Studies Chest X-Ray 11/10/23 18:00 SINGLE VIEW CHEST CLINICAL HISTORY: Fever. IMPRESSION: 1. There are left basilar opacities. This could represent atelectasis versus a mild pneumonitis. Clinical correlation will be required and radiographic follow- up to resolution is recommended. 2. A spinal lona is in place and appears fractured. ACT 112: Negative or not required by law. Electronically signed by: Emiliano Herndon M.D. 11/10/2023 8:06 PM Abdomen/Pelvis CT 11/10/23 23:18 Exam(s): CT ABDOMEN + PELVIS Without Contrast CLINICAL HISTORY: Reason for exam: ?pyelonephritis ?renal stones. IMPRESSION: 1. Dependent airspace consolidations. 2. Mild wall thickening of small bowel, correlate for mild enteritis. 3. Bilateral nonobstructing renal stones, measuring up to 3 mm in the RIGHT kidney. Electronically signed by: Basilio Holm MD 11/11/23 02:49 AM Renal Ultrasound 11/12/23 08:38 RENAL ULTRASOUND HISTORY: Acute bilateral flank pain evaluate for abscess COMPARISON: CT 11/11/2023 IMPRESSION: 1. Nonobstructing bilateral nephrolithiasis. No hydronephrosis. 2. Unremarkable urinary bladder. 3. No perinephric fluid collections. ACT 112: Negative or not required by law. Electronically signed by: Isaak Tolliver M.D. 11/12/2023 11:30 AM Vital Signs Temp 36.6 C 11/12/23 12:07 Pulse 68 11/12/23 12:07 Resp 18 11/12/23 12:07 BP 96/44 L 11/12/23 12:07 Pulse Ox 94 11/12/23 12:07 O2 Del Method Room Air 11/12/23 11:55 11/12/23 07:32 11/12/23 07:32 Hospital Course (1) UTI (urinary tract infection): Patient endorses dark/malodorous urine this week along with fevers, chills, rigors that developed evening of 11/09/2023. -Reviewed labs 11/12/2023: White count normalized to 6.08. Hemoglobin 9.9. Potassium normalized to 3.6. CRP downtrending to 12.97. Procalcitonin downtrending to 8.30. Ordered retroperitoneal ultrasound and reviewed the study 11/11. Nonobstructing bilateral nephrolithiasis without hydronephrosis, unremarkable urinary bladder no perinephric fluid collections. Patient will receive 1 additional dose of ertapenem 11/11 . Patient did experience GI upset following her dose of ertapenem on 11/10. She is requesting Compazine half hour prior to last dosage. She will be discharged home on Augmentin 875/125 p.o. twice daily x 5 days which will begin on 11/12 She was given a probiotic to take daily with Augmentin at home Prelim results of urine and blood both revealing gram-negative bacilli. PCR serology detected enterobacterales, E. coli, CTXM gene resistance. Patient switched from Zosyn to ertapenem 11/10 Acetaminophen as needed for fever/pain q6 -Discussed plan of care with patient and her fiance. (2) Sepsis: Urinary source. Fever overnight of 38.7C but has since normalized to 36.6 - hypotension and tachycardia resolved. Patient does report systolic readings between 80s to 90s at home and that this is normal for her Reviewed Lactate 11/11/2023: 2.2 Continue IV fluids with LR at 80 mL/h (3) Hypokalemia: Reviewed potassium 11/12/2023 which is stable at 3.6 Patient was given 20 mEq of potassium 3 times daily 11/10 Will plan to repeat BMP in the morning to reassess and correct as needed. Plan Disposition: Discharge to home. Full code Regular diet VTE PPx: Lovenox 40 mg SQ q24h Total Time Total Time Spent Total Time Spent (In Minutes): 45 Discharge Plan Discharge Items Patient Disposition: Home - Self-Care Reason For Visit: FEVER, RIGORS, DARK URINE Discharge Diagnosis: Urinary tract infection, sepsis Activity: Resume your previous activity Non-emergency contact: Primary Care Provider Call non-emergency contact if: you have any medication questions, your symptoms worsen and you have a fever Follow-up/Referrals: Tato Tomlin MD [Primary Care Provider] - Diet: Regular Addtl Attending Provider Instructions: Ms. Ybrara, Dante were hospitalized for a urinary tract infection that caused sepsis. Please see recommendations below. -We recommend you take Augmentin 875mg twice daily with food starting 11/13/2023 -Please use the probiotic daily while on the antibiotic to help with GI side effects. -Please use Tylenol 650mg every 6 hours as needed for pain or fever -If you notice worsening of your symptoms include blood in urine, decreased urination, fever, or worsening abdominal pain please report back to the ER immediately. -Please follow up with your PCP within 1-2 weeks of discharge. Sincerely, Olga Luna PA-C Pending Studies at Discharge: No Stand-Alone Forms: My [facility], Work/School Release, Smoking Cessation Medications and DC Order Prescriptions: New amoxicillin-pot clavulanate 875-125 mg tablet 1 tab PO BID Qty: 10 0RF Probiotic 3 billion cell capsule 3,000 mmu cells PO DAILY Qty: 5 0RF Rx Instructions: administer with a meal Continued pfndxdzlwd-iovzyojpsyqnd-izdl 50-325-40 mg tablet 1 tab PO DAILY PRN (Reason: q6h) mirtazapine 15 mg tablet 30 mg PO HS zolpidem 12.5 mg tablet,ext release multiphase 12.5 mg PO HS Discontinued amoxicillin 500 mg tablet 500 mg PO TID Rx Instructions: started 10/22/23 for 7 days Discharge Orders: Discharge Order (Routine); Ordered 11/12/23 Ordered By: Olga Luna Admission Data Admit Date/Time: 11/10/23 20:31 Attending Provider: Pk Teague Admit Provider: Iliana Ceja Primary Care Provider: Tato Tomlin Other Providers: Iliana Ceja Other Interventions: Discharge Summary Assessment (RN) Last Done: 11/12/23 12:07 Supervising Physician Co-Signing Physician Notes During face to face encounter, I obtained a brief physical examination, discussed hospital stay with patient and discharge instructions with patient. I discussed discharge plan of care with KRISTEN Luna I reviewed above note and agree with it except for the following: Patient treated with a complicated UTI. Cultures showed sensitivity. Patient will be on augmentin for an additional 5 days which tay be 7 days total. Given her rapid improvement, this should be enough to treat her UTI. Coding Level of Care Code 43929 INP/OBS DISCH >30 MIN Diagnoses Urinary tract infection without hematuria, site unspecified N39.0 Hematuria presence: without hematuria Urinary tract infection type: site unspecified Sepsis without acute organ dysfunction, due to unspecified organism A41.9 Sepsis acute organ dysfunction status: without acute organ dysfunction Sepsis type: sepsis due to unspecified organism Hypokalemia E87.6
[2023-11-12] MEDS: PROCHLORPERAZINE 5 MG in SYRINGE 4 ML IV PRN (14:52)
[2023-11-12] MEDS ORDERED: MIRTAZAPINE TAB 15 MG TAB PO SCH (21:00)
[2023-11-12] MEDS ORDERED: ZOLPIDEM PO SCH (21:00)
== END 2023-11-12 16:20 | disposition home or self-care (01) | DRG 872 ==
LOC: ED 17:45 → 2N 20:31 → SUATTDRO 20:31 → 2N 22:02
DX: B96.20 Unspecified Escherichia coli [E. coli] as the cause of diseases classified elsewhere; Z16.19 Resistance to other specified beta lactam antibiotics; N20.0 Calculus of kidney; Z88.7 Allergy status to serum and vaccine; E87.6 Hypokalemia; N39.0 Urinary tract infection, site not specified; R79.89 Other specified abnormal findings of blood chemistry; Z88.1 Allergy status to other antibiotic agents; Z16.11 Resistance to penicillins; Z96.89 Presence of other specified functional implants; A41.51 Sepsis due to Escherichia coli [E. coli]; F32.A Depression, unspecified; Z79.899 Other long term (current) drug therapy; R51.9 Headache, unspecified